=== PATIENT | female | born 1945 | race Caucasian/White ===

== ENCOUNTER 2022-05-09 08:50 | Observation (INO) | payer MEDICARE, MEDICAID, SELFPAY ==
[2022-05-09] VITALS (16 sets, daily range): BP systolic 81–152; BP diastolic 42–71; PULSE 65–92; RESP 12–20; TEMP 36.4–37; O2SAT 94–99; BMI 27.3; BMI 27.8
--- NOTE | ~2022-05-09 | XR_ITS ---
EXAMINATION: XR CHEST CLINICAL INFORMATION: Shortness of breath. COMPARISON: None available. TECHNIQUE: Frontal view of the chest was obtained. FINDINGS: No significant abnormality is noted involving the heart, lungs, mediastinum, bony thorax or soft tissues. XR/XR chest 1V IMPRESSION: No acute cardiopulmonary process.
--- NOTE | 2022-05-09 09:22 | ECG_ITS ---
Test Reason : DIZZINESS Blood Pressure : / mmHG Vent. Rate : 074 BPM Atrial Rate : 074 BPM P-R Int : 124 ms QRS Dur : 068 ms QT Int : 364 ms P-R-T Axes : 050 -36 082 degrees QTc Int : 404 ms Normal sinus rhythm Left axis deviation Low voltage QRS Abnormal ECG No previous ECGs available Referred By: Generic ED Physician Electronically Signed By:Denny Tatum
--- NOTE | 2022-05-09 09:23 | PC.NURSE ---
patient a&ox3, pt c/o increased dizziness recently, orthostats were performed and noted to be positive with patient experiencing increased dizziness in sitting and standing positions, nurse monitoring applied- nsr 70s-80 on monitor, pt hypotensive, pt awaiting provider will notify tech to draw labs and performe ekg, will continue to monitor.
[2022-05-09 09:53] LABS: MANUAL DIFF FLAG NO
[2022-05-09 09:56] LABS: Basophils Percent Auto 0.4 % (0-2); Eosinophils Absolute Auto 0.2 X10*3/uL (0.0-0.4); Eosinophils Percent Auto 1.5 % (0-4); Hematocrit 39.8 % (37.0-47.0); Hemoglobin 12.8 g/dl (12.0-16.0); Imm Gran Abs Auto 0.04 X10*3/uL (0.00-0.03); Imm Gran Pct Auto 0.4 % (0.0-0.4); Lymphocytes Absolute Auto 1.5 X10*3/uL (1.2-4.9); Lymphocytes Percent Auto 13.8 % (20-40); Mean Corpuscular HGB Conc 32.2 g/dl (31.0-35.0); Mean Corpuscular Hemoglobin 32.2 pg (27.0-33.0); Monocytes Absolute Auto 0.6 X10*3/uL (0.1-1.2); Monocytes Percent Auto 5.3 % (2-11); Neutrophils Absolute Auto 8.6 x10*3/uL (2.0-8.3); Neutrophils Percent Auto 78.6 % (45-73); Platelet Count 151 X10*3/uL (160-400); Red Blood Count 3.98 X10*6/uL (4.20-5.50); Red Cell Distribution Width 12.4 % (11.0-16.0)
--- NOTE | 2022-05-09 09:57 | ED.GENADULT ---
HPI - General Adult General Chief complaint: Dizziness Stated complaint: DIZZY,SOB,LOW BP 80/40 FROM [facility] Time Seen by Provider: 05/09/22 09:57 Source: patient and EMS Mode of arrival: EMS Limitations: no limitations History of Present Illness HPI narrative: Patient is a 76 year old assigned female at with a history of hypotension presenting to the emergency department today with dizziness and lightheadedness. Patient states that she can't get up without being dizzy and lightheaded. Patient denies any abdominal pain, nausea, vomiting, fever, chills, blurry vision, double vision, loss of vision, chest pain, difficulty breathing, shortness of breath, back pain, night sweats, pain with urination, increased urinary frequency, increased urinary urgency, blood in her urine or stool, syncope or a near syncopal episode, recent trauma or falls, bowel incontinence, bladder incontinence, bowel retention, bladder retention, or any other complaints at this time. Onset (ago): hour(s) Severity: mild Severity scale (1-10): 4 Relieving factors: none Exacerbating factors: none Treatments prior to arrival: none Related Data Home Medications Medication Instructions Recorded Confirmed acetaminophen 500 mg tablet 1,000 mg PO TID 05/09/22 05/09/22 albuterol sulfate 90 mcg/actuation 2 puff inhalation Q4-6H PRN 05/09/22 05/09/22 aerosol inhaler Wheezing albuterol sulfate 90 mcg/actuation 2 inh inhalation BID 05/09/22 05/09/22 breath activated powder inhaler (ProAir RespiClick) amitriptyline 25 mg tablet 25 mg PO BEDTIME 05/09/22 05/09/22 aspirin 81 mg chewable tablet 81 mg PO DAILY 05/09/22 05/09/22 buspirone 10 mg tablet 5 mg PO TID 05/09/22 05/09/22 carboxymethylcellulose sodium 0.5 1 - 2 drp ophthalmic (eye) Q2H PRN 05/09/22 05/09/22 % eye drops (Refresh Tears) Dry Eye(S) chlorhexidine gluconate 0.12 % 15 ml mucous membrane BID 05/09/22 05/09/22 mouthwash cholecalciferol (vitamin D3) 50 50 mcg PO DAILY 05/09/22 05/09/22 mcg (2,000 unit) tablet clonazepam 0.5 mg tablet 0.5 mg PO BID 05/09/22 05/09/22 cyanocobalamin (vitamin B-12) 2,000 mcg PO DAILY 05/09/22 05/09/22 1,000 mcg tablet duloxetine 30 mg capsule,delayed 30 mg PO DAILY 05/09/22 05/09/22 release duloxetine 60 mg capsule,delayed 60 mg PO DAILY 05/09/22 05/09/22 release fluticasone propionate 50 1 spray intranasal DAILY 05/09/22 05/09/22 mcg/actuation nasal spray,suspension levothyroxine 88 mcg tablet 88 mcg PO MOWEFR@0600 05/09/22 05/09/22 lidocaine 4 % topical patch 1 patch topical DAILY 05/09/22 05/09/22 (Aspercreme (lidocaine)) lidocaine HCl 2 % mucosal solution 1 appl mucous membrane TID 05/09/22 05/09/22 (Lidocaine Viscous) loratadine 10 mg tablet 10 mg PO DAILY 05/09/22 05/09/22 midodrine 2.5 mg tablet 2.5 mg PO BID@0900,1400 05/09/22 05/09/22 rosuvastatin 20 mg tablet 20 mg PO BEDTIME 05/09/22 05/09/22 sennosides 8.6 mg tablet 17.2 mg PO DAILY PRN Constipation 05/09/22 05/09/22 simethicone 80 mg chewable tablet 80 mg PO QID PRN bloating 05/09/22 05/09/22 trolamine salicylate 10 % topical 1 appl topical DAILY PRN Pain 05/09/22 05/09/22 cream Allergies Allergy/AdvReac Type Severity Reaction Status Date / Time No Known Allergies Allergy Verified 05/09/22 09:03 Review of Systems Constitutional: Constitutional: Reports no additional constitutional complaints, Denies chills, Denies fever(s) and Denies night sweats Eyes: Eyes: Reports no additional eye complaints, Denies blurry vision, Denies change in vision, Denies diplopia, Denies eye discharge, Denies loss of vision and Denies eye pain ENT: Reports dizziness Cardiovascular: Cardiovascular: Reports no additional cardiovascular complaints, Denies chest pain, Denies lightheadedness, Denies Loss of Consciousness and Denies dyspnea Respiratory: Respiratory: Reports no additional respiratory complaints and Denies dyspnea Gastrointestinal: Gastrointestinal: Reports no additional gastrointestinal complaints, Denies abdominal pain, Denies melena, Denies hematochezia, Denies change in bowel habits and Denies change in stool character Genitourinary: Genitourinary: Denies hematuria, Denies urinary frequency, Denies dysuria, Denies urinary incontinence, Denies urinary hesitancy and Denies urinary urgency Musculoskeletal: Musculoskeletal: Reports no additional musculoskeletal complaints, Denies numbness and Denies tingling Neurologic: Reports dizziness, Denies loss of vision, Denies numbness and Denies tingling Psychiatric: Psychiatric: Reports no additional psychiatric complaints Endocrine: Endocrine: Reports no additional endocrine complaints Hematologic/Lymphatic: Hematologic/Lymphatic: Reports no additional hematologic/lymphatic complaints Allergic/Immunologic: Allergic/Immunologic: Reports no additional allergic/immunologic complaints [facility] Past Medical History Attestation statement: The following information was validated with the patient. Source: old records reviewed and nursing notes reviewed Medical History Anxiety COPD (chronic obstructive pulmonary disease) Depression High cholesterol Hypotension Hypothyroid Social History Social History Alcohol intake: never Smoked in Last 30 Days: No Use of substances other than those prescribed or required for medical reasons: No Advance Directives: Yes Advance Directives Information Provided: No Physical Exam ED Vital Signs: Vital Signs - 24 hr 05/09/22 09:03 05/09/22 09:17 05/09/22 09:19 Temperature 97.5 F Pulse Rate 77 77 84 Respiratory Rate 18 Blood Pressure 97/56 L 106/58 L 81/50 L Pulse Oximetry 96 Oxygen Delivery Method Room Air 05/09/22 09:18 05/09/22 10:46 05/09/22 11:53 Temperature 98.1 F 98.1 F Pulse Rate 92 65 82 Respiratory Rate 14 18 Blood Pressure 84/42 L 123/65 97/52 L Pulse Oximetry 96 94 Oxygen Delivery Method Room Air Room Air 05/09/22 12:20 05/09/22 13:22 Temperature 98.1 F 98.0 F Pulse Rate 77 82 Respiratory Rate 14 18 Blood Pressure 121/64 102/60 Pulse Oximetry 98 99 Oxygen Delivery Method Room Air Room Air BMI result Body Mass Index 27.3 Const General: cooperative, no acute distress, alert and awake Nutritional Appearance: well nourished Orientation/consciousness: patient oriented x3 Limitations: no limitations HENMT Head: Yes normal to inspection and Yes atraumatic Ears: hearing grossly normal bilaterally and external ears normal General nose exam: Normal external nose present, no nasal discharge noted and no epistaxis Face and sinus: Yes normal facial exam, No abrasion and No laceration Mouth: Normal oral and palatal mucosa present, no drooling and no muffled voice Eyes General: appearance normal, both eyes and all related structures Periorbital: periorbital findings normal Eyelids: Yes eyelids normal Conjunctivae: conjunctivae normal Pupils: Equal, round and reactive pupils present EOM: EOMs intact bilaterally Neck Neck: Yes normal visual inspection, Yes full ROM and Yes no lymphadenopathy Chest Chest palpation & inspection: normal inspection of the chest Resp Effort & Inspection: normal respiratory effort and able to speak in complete sentences Auscultation: clear to auscultation bilaterally Cardio Rate: regular rate Rhythm: regular rhythm GI Inspection: Yes normal to inspection Palpation (GI): Soft to palpation, not firm, nontender and no guarding Neuro General: patient oriented x3 and moves all extremities Cranial nerves: Yes Equal, round and reactive pupils present Cognition (Neuro): normal cognition Motor exam (neuro): 5/5 motor strength present throughout Sensory Exam: Normal double simultaneous stimulation for sensation Coordination: [id number] test normal Extrem General: Yes normal to inspection, Yes full ROM and Yes capillary refill normal Psych Appearance: grossly normal Mental Status: mental status grossly normal Affect: normal affect Attitude: cooperative Thought process: Normal thought process present Thought content: Normal thought content present Insight: Good insight present (Psych) Medications Administered Discontinued Medications Generic Name Dose Route Start Last Admin Trade Name Freq PRN Reason Stop Dose Admin Sodium Chloride 500 mls @ 500 mls/hr 05/09/22 12:00 05/09/22 13:04 Ns IV 05/09/22 12:59 Infused .Q1H [facility] Infusion Midodrine 12.5 mg 05/09/22 10:01 05/09/22 10:18 Midodrine Hcl 10 Mg Tablet PO 05/09/22 10:02 12.5 mg ONCE ONE Administration Medical Decision Making Medical Decision Making MDM Narrative: Patient is a 76 year old assigned female at with a history of hypotension presenting to the emergency department today with dizziness/lightheadedness. Patient's physical exam showed positive orthostatic hypotension. Patient's blood work was unremarkable. Patient's EKG was unremarkable. Patient's chest x-ray showed no acute process. Patient was given IV fluids and midodrine however, the patient's orthostatic hypotension persisted. I spoke to the hospitalist team who agreed to admission. I explained my physical exam findings as well as all test results to the patient. I answered all questions asked by the patient. Patient verbalized agreement and understanding with this treatment plan and admission. Differential Diagnosis Differential Diagnoses: The differential diagnosis associated with the presentation includes orthostatic hypotension Consult Healthcare Provider Management of the patient was discussed with: Hospitalist (agreed to admission) Lab Data MDM Lab Attestation statement: I reviewed the patient's lab results. 05/09/22 09:49 05/09/22 09:49 Labs: Lab Results 05/09/22 05/09/22 05/09/22 Range/Units 09:49 09:49 09:49 WBC 11.0 H (4.8-10.8) X10*3/uL RBC 3.98 L (4.20-5.50) X10*6/uL Hgb 12.8 (12.0-16.0) g/dl Hct 39.8 (37.0-47.0) % MCV 100.0 H (80.0-98.0) fL MCH 32.2 (27.0-33.0) pg MCHC 32.2 (31.0-35.0) g/dl RDW 12.4 (11.0-16.0) % Plt Count 151 L (160-400) X10*3/uL MPV 9.0 L (9.4-12.3) fL Immature Gran % (Auto) 0.4 (0.0-0.4) % Neut % (Auto) 78.6 H (45-73) % Lymph % (Auto) 13.8 L (20-40) % Coos % (Auto) 5.3 (2-11) % Eos % (Auto) 1.5 (0-4) % Baso % (Auto) 0.4 (0-2) % Lymph # (Auto) 1.5 (1.2-4.9) X10*3/uL Coos # (Auto) 0.6 (0.1-1.2) X10*3/uL Eos # (Auto) 0.2 (0.0-0.4) X10*3/uL Baso # (Auto) 0.0 (0.0-0.2) X10*3/uL Abs Immat Gran (auto) 0.04 H (0.00-0.03) X10*3/uL Absolute Neuts (auto) 8.6 H (2.0-8.3) x10*3/uL Absolute Nucleated RBC 0.000 (0.0-0.012) X10*3/uL Nucleated RBC % (auto) 0.0 (0.0-0.2) /100WBC Sodium 136 (135-145) mmol/L Potassium 4.4 (3.3-5.1) mmol/L Chloride 107 (96-108) mmol/L Carbon Dioxide 18 L (22-29) mmol/L Anion Gap 15 (12-20) BUN 16 (9-16) mg/dL Creatinine 0.97 (0.5-1.4) mg/dL Estim Creat Clear Calc 44.5 Estimated GFR 56 Random Glucose 94 (60-115) mg/dL Calcium 9.8 (8.4-10.2) mg/dL Total Bilirubin 0.5 (0.0-1.0) mg/dL Direct Bilirubin < 0.2 (0.0-0.5) mg/dL AST 89 H (5-31) U/L ALT 158 H (0-31) U/L Alkaline Phosphatase 112 (39-117) U/L Troponin I High Sens < 2.7 (<3.5-17.0) ng/L Total Protein 6.0 L (6.5-8.0) g/dL Albumin 4.0 (3.5-5.0) g/dL COVID-19 ([facility]ISHA) (Negative) COVID-19 Clin Com 05/09/22 Range/Units 12:19 WBC (4.8-10.8) X10*3/uL RBC (4.20-5.50) X10*6/uL Hgb (12.0-16.0) g/dl Hct (37.0-47.0) % MCV (80.0-98.0) fL MCH (27.0-33.0) pg MCHC (31.0-35.0) g/dl RDW (11.0-16.0) % Plt Count (160-400) X10*3/uL MPV (9.4-12.3) fL Immature Gran % (Auto) (0.0-0.4) % Neut % (Auto) (45-73) % Lymph % (Auto) (20-40) % Coos % (Auto) (2-11) % Eos % (Auto) (0-4) % Baso % (Auto) (0-2) % Lymph # (Auto) (1.2-4.9) X10*3/uL Coos # (Auto) (0.1-1.2) X10*3/uL Eos # (Auto) (0.0-0.4) X10*3/uL Baso # (Auto) (0.0-0.2) X10*3/uL Abs Immat Gran (auto) (0.00-0.03) X10*3/uL Absolute Neuts (auto) (2.0-8.3) x10*3/uL Absolute Nucleated RBC (0.0-0.012) X10*3/uL Nucleated RBC % (auto) (0.0-0.2) /100WBC Sodium (135-145) mmol/L Potassium (3.3-5.1) mmol/L Chloride (96-108) mmol/L Carbon Dioxide (22-29) mmol/L Anion Gap (12-20) BUN (9-16) mg/dL Creatinine (0.5-1.4) mg/dL Estim Creat Clear Calc Estimated GFR Random Glucose (60-115) mg/dL Calcium (8.4-10.2) mg/dL Total Bilirubin (0.0-1.0) mg/dL Direct Bilirubin (0.0-0.5) mg/dL AST (5-31) U/L ALT (0-31) U/L Alkaline Phosphatase (39-117) U/L Troponin I High Sens (<3.5-17.0) ng/L Total Protein (6.5-8.0) g/dL Albumin (3.5-5.0) g/dL COVID-19 ([facility]ISHA) Negative (Negative) COVID-19 Clin Com See Note Independent Interpretation I performed an independent interpretation of an: EKG Interpretation: Vent. Rate: 074 BPM ? ? Atrial Rate : 074 BPM P-R Int: 124 ms? QRS Dur : 068 ms QT Int: 364 ms ? ? ? P-R-T Axes : 050 -36 082 degrees QTc Int: 404 ms ? Normal sinus rhythm Left axis deviation Low voltage QRS Abnormal ECG No previous ECGs available DD/ 0932 Radiology Impression Radiologist Impression: My interpretation is in agreement with the radiologist's impression of this imaging study. EXAMINATION: XR CHEST CLINICAL INFORMATION: Shortness of breath. COMPARISON: None available. TECHNIQUE: Frontal view of the chest was obtained. FINDINGS: No significant abnormality is noted involving the heart, lungs, mediastinum, bony thorax or soft tissues. XR/XR chest 1V IMPRESSION: No acute cardiopulmonary process. Dictated By: Leo Jack MD Signed By: Electronically signed by Leo Jack MD 05/09/22 1118 Independent Historian Clinical information obtained from an independent historian. History obtained from or confirmed by: EMS Critical Care Time Critical Care Time Critical Care Time: Yes Total Critical Care Time: 30 Attestation: I spent 30 minutes of Critical Care Time with this patient. This does not include time spent on separately reported billable procedures. Discharge Plan Discharge Clinical Impression: Orthostatic hypotension Patient Disposition: Admitted As Inpatient Print Language: Samoan
[2022-05-09 10:14] LABS: Anion Gap 15 (12-20); Blood Urea Nitrogen 16 mg/dL (9-16); Calcium 9.8 mg/dL (8.4-10.2); Carbon Dioxide 18 mmol/L (22-29); Chloride 107 mmol/L (96-108); Creatinine Clr Calc Pharmacy 44.5; Estimated Glomerular Filt Rate 56; Glucose Random 94 mg/dL (60-115); Potassium 4.4 mmol/L (3.3-5.1); Sodium 136 mmol/L (135-145)
[2022-05-09] MEDS: Midodrine HCl 10 MG TABLET 12.5 MG PO (10:18)
--- NOTE | 2022-05-09 10:20 | PC.NURSE ---
patient medicated with hypotension meds per order, will continue to monitor
[2022-05-09 10:28] LABS: Troponin-I High Sensitivity < 2.7 ng/L (<3.5-17.0)
--- NOTE | 2022-05-09 12:01 | PC.NURSE ---
patient a&ox3, quality assurance monitor chassis nsr, pt oob to standing position to take vitals and see if she could ambulate- upon standing pts bp dropped and pt began complaining of dizziness and feeling as if she was going to fall- pt was noted to be swaying while standing. pt put back in bed, provider, notified, will continue to monitor.
[2022-05-09] MEDS: 0.9 % Sodium Chloride 500 ML IV (12:04)
--- NOTE | 2022-05-09 12:05 | PC.NURSE ---
pt medicated with ivf per order
--- NOTE | 2022-05-09 12:18 | PHA.MEDREC ---
Pharmacy Consult ? Medication Reconciliation Pharmacy has completed the medication reconciliation. Patient came from [facility] with medication list. Prescription medication match claim history. Gisella Hoffmann, NamanD
[2022-05-09 12:58] LABS: COVID-19 Test Negative (Negative); IDNOW Serial# 55D5AD1C
[2022-05-09 13:00] LABS: Alanine Aminotransferase 158 U/L (0-31); Alkaline Phosphatase 112 U/L (39-117); Aspartate Amino Transferase 89 U/L (5-31); Bilirubin Direct < 0.2 mg/dL (0.0-0.5); Bilirubin Total 0.5 mg/dL (0.0-1.0)
--- NOTE | 2022-05-09 13:22 | PC.NURSE ---
Addendum entered by Jasmin Toledo RN 05/09/22 13:33: upon patient laying back in bed pt stated she felt dizzy again. Original Note: patient a&ox2, pt rang for assist to bathroom, vitals obtained prior to ambulation- pts standing bp has increased over 100 systolic, pt denied dizziness at the time of BP, this nurse ambulated the patient to bathroom- she continued to deny dizziness however she is very unsteady on her feet- pt states she usually ambulates with a walker, lives in assisted living and calls for assistance to ambulate to the bathroom. pt also states she has had decreased po intake recently- this nurse has encouraged the patient to increase her po to help prevent dizziness and continue to take her medication to prevent hypotention which also would contribute to her dizziness. pt understood our conversation and stated she did need to drink more. pt reconnected to monitor, call noonan within reach, will notify provider and continue to monitor
[2022-05-09 14:11] LABS: Appearance Urine Clear; Color Urine Yellow; Glucose Urine UA Negative (Negative); Leukocyte Esterase Urine Small (1+) (Negative); Nitrite Urine Negative (Negative); Specific Gravity - Urine 1.015 (1.005-1.025); UMIC TRIGGER UACC YES; Urine Blood Negative (Negative); Urine Ketones Negative (Negative); Urine Protein Negative (Neg-Trace)
[2022-05-09 14:38] LABS: Bacteria Urine None Seen (None Seen); RBC Urine 0-2 /HPF (0-2); Squamous Epithelial Cell Urine 0-2 /HPF (0-2); UACC Culture Trigger YES; WBC Urine 0-5 /HPF (0-5)
--- NOTE | 2022-05-09 15:48 | PC.NURSE ---
this nurse spoke to Denton YOUNG CM from [facility] concerning this pt. Denton will be following up tomorrow after pt admission.
--- NOTE | 2022-05-09 15:49 | PC.NURSE ---
[facility] 28/08 phone number [phone]
--- NOTE | 2022-05-09 16:19 | PM.IMHP ---
History of Present Illness Date of Service: 05/09/22 <Yue Brown NP - Last Filed: 05/09/22 16:41> Chief Complaint: dizziness <Yue Brown NP - Last Filed: 05/09/22 16:41> 76-year-old woman presenting from [facility] with dizziness. She reports that she woke up this morning and the clinical social work aide was helping her get out of bed she reported that she felt rushed and she got out of bed fast and began to feel dizzy. She denied any loss of consciousness, fall, nausea, vomiting, diarrhea, chest pain, shortness breath, visual changes, headache. She does have a history of orthostasis and is on midodrine. She also did report that she may not have been eating and drinking as much as she usually does over the last couple of days. In the ER, she was noted to be orthostatic, she was given 500 mL of IV fluids with stabilization of blood pressure. No sign of infection noted, UA and chest x-ray both negative, no fever. COVID negative. She will be placed on observation for further management and treatment of orthostatic hypotension. <Yue Brown NP - Last Filed: 05/09/22 16:41> Review of Systems Review of Systems: Denies any recent fever chills or decrease in appetite respiratory denies any shortness of breath coverage production cardiovascular denied chest pain gastrointestinal denies any dysphagia abdominal pain nausea vomiting or diarrhea genitourinary denies any dysuria frequency or hematuria musculoskeletal denies any joint pain or swelling neuropsych denies any weakness or seizures all other systems reviewed are negative <Yue Brown NP - Last Filed: 05/09/22 16:41> [facility] Medical History: Medical History Anxiety COPD (chronic obstructive pulmonary disease) Depression High cholesterol Hypotension Hypothyroid <Yue Brown NP - Last Filed: 05/09/22 16:41> Pertinent family history: No cardiac disease <Yue Brown NP - Last Filed: 05/09/22 16:41> Surgical History: Surgical History (Updated 05/09/22 @ 16:20 by Yue Brown NP) Surgical history unknown <Yue Brown NP - Last Filed: 05/09/22 16:41> Social History: Social History Alcohol intake: never Patient Tobacco Use Status: Never used Tobacco Smoked in Last 30 Days: No Use of substances other than those prescribed or required for medical reasons: No Advance Directives: Yes Advance Directives Information Provided: No <Yue Brown NP - Last Filed: 05/09/22 16:41> Meds Allergies/Adverse reactions: Allergies Allergy/AdvReac Type Severity Reaction Status Date / Time No Known Allergies Allergy Verified 05/09/22 09:03 <Yue Brown NP - Last Filed: 05/09/22 16:41> Active Medications: Current Medications Acetaminophen (Acetaminophen 325 Mg Tablet) 650 mg PO Q6H PRN PRN Reason: Pain, Mild (Pain Scale 1-3) Heparin Sodium (Porcine) (Heparin Sodium,Porcine 5,000 Unit/Ml Vial) 5,000 unit SUBCUT Q12H [facility] Sodium Chloride (Ns) 1,000 mls @ 80 mls/hr IVCONT .[id number] [facility] Stop: 05/10/22 04:59 Ondansetron HCl (Ondansetron Hcl 4 Mg/2 Ml Vial) 4 mg IVPUSH Q8H PRN PRN Reason: Nausea and Vomiting Pharmacy Consult (Consult Rx Perform Med Rec) 1 each MISCELLANE ONCE PRN PRN Reason: Consult order Sodium Chloride (0.9 % Sodium Chloride Flush 3 Ml Syringe) 3 ml IVFLUSH QSHIFT [facility]ANGELIST <Yue Brown NP - Last Filed: 05/09/22 16:41> Home medications: Home Medications Medication Instructions Recorded Confirmed Last Taken Type acetaminophen 500 mg tablet 1,000 mg PO TID 05/09/22 05/09/22 Unknown History albuterol sulfate 90 mcg/actuation 2 puff inhalation Q4-6H PRN 05/09/22 05/09/22 Unknown History aerosol inhaler Wheezing albuterol sulfate 90 mcg/actuation 2 inh inhalation BID 05/09/22 05/09/22 Unknown History breath activated powder inhaler (ProAir RespiClick) amitriptyline 25 mg tablet 25 mg PO BEDTIME 05/09/22 05/09/22 Unknown History aspirin 81 mg chewable tablet 81 mg PO DAILY 05/09/22 05/09/22 Unknown History buspirone 10 mg tablet 5 mg PO TID 05/09/22 05/09/22 Unknown History carboxymethylcellulose sodium 0.5 1 - 2 drp ophthalmic (eye) Q2H PRN 05/09/22 05/09/22 Unknown History % eye drops (Refresh Tears) Dry Eye(S) chlorhexidine gluconate 0.12 % 15 ml mucous membrane BID 05/09/22 05/09/22 Unknown History mouthwash cholecalciferol (vitamin D3) 50 50 mcg PO DAILY 05/09/22 05/09/22 Unknown History mcg (2,000 unit) tablet clonazepam 0.5 mg tablet 0.5 mg PO BID 05/09/22 05/09/22 Unknown History cyanocobalamin (vitamin B-12) 2,000 mcg PO DAILY 05/09/22 05/09/22 Unknown History 1,000 mcg tablet duloxetine 30 mg capsule,delayed 30 mg PO DAILY 05/09/22 05/09/22 Unknown History release duloxetine 60 mg capsule,delayed 60 mg PO DAILY 05/09/22 05/09/22 Unknown History release fluticasone propionate 50 1 spray intranasal DAILY 05/09/22 05/09/22 Unknown History mcg/actuation nasal spray,suspension levothyroxine 88 mcg tablet 88 mcg PO MOWEFR@0600 05/09/22 05/09/22 Unknown History lidocaine 4 % topical patch 1 patch topical DAILY 05/09/22 05/09/22 Unknown History (Aspercreme (lidocaine)) lidocaine HCl 2 % mucosal solution 1 appl mucous membrane TID 05/09/22 05/09/22 Unknown History (Lidocaine Viscous) loratadine 10 mg tablet 10 mg PO DAILY 05/09/22 05/09/22 Unknown History midodrine 2.5 mg tablet 2.5 mg PO BID@0900,1400 05/09/22 05/09/22 Unknown History rosuvastatin 20 mg tablet 20 mg PO BEDTIME 05/09/22 05/09/22 Unknown History sennosides 8.6 mg tablet 17.2 mg PO DAILY PRN Constipation 05/09/22 05/09/22 Unknown History simethicone 80 mg chewable tablet 80 mg PO QID PRN bloating 05/09/22 05/09/22 Unknown History trolamine salicylate 10 % topical 1 appl topical DAILY PRN Pain 05/09/22 05/09/22 Unknown History cream <Yue Brown NP - Last Filed: 05/09/22 16:41> Physical Exam Vital Signs and Narrative: Vital Signs: Last Vital Signs Temp 98.6 F 05/09/22 15:19 Pulse 72 05/09/22 15:19 Resp 14 05/09/22 15:19 BP 133/71 05/09/22 15:19 Pulse Ox 96 05/09/22 15:19 O2 Del Method Room Air 05/09/22 15:19 BMI result Body Mass Index 27.3 <Yue Brown NP - Last Filed: 05/09/22 16:41> Appearing in no acute distress head is normocephalic atraumatic eyes pupils are PERRLA sclera is anicteric mouth throat mucous membranes are intact and moist neck is supple no lymphadenopathy, no JVD noted lung sounds are clear to auscultation heart regular rate rhythm, clear S1, S2 positive bowel sounds, abdomen is soft, nontender neuro patient is alert x3, no focal deficits <Yue Brown NP - Last Filed: 05/09/22 16:41> Results Labs CBC and Chem 7: 05/09/22 09:49 05/09/22 09:49 <Yue Brown NP - Last Filed: 05/09/22 16:41> Labs: Laboratory Results - last 24 hr 05/09/22 05/09/22 05/09/22 09:49 09:49 09:49 MCV 100.0 H MCH 32.2 MCHC 32.2 RDW 12.4 Plt Count 151 L MPV 9.0 L Immature Gran % (Auto) 0.4 Neut % (Auto) 78.6 H Lymph % (Auto) 13.8 L Pepin % (Auto) 5.3 Eos % (Auto) 1.5 Baso % (Auto) 0.4 Lymph # (Auto) 1.5 Pepin # (Auto) 0.6 Eos # (Auto) 0.2 Baso # (Auto) 0.0 Abs Immat Gran (auto) 0.04 H Absolute Neuts (auto) 8.6 H Absolute Nucleated RBC 0.000 Nucleated RBC % (auto) 0.0 Anion Gap 15 Estim Creat Clear Calc 44.5 Estimated GFR 56 Random Glucose 94 Calcium 9.8 Total Bilirubin 0.5 Direct Bilirubin < 0.2 AST 89 H ALT 158 H Alkaline Phosphatase 112 Troponin I High Sens < 2.7 Total Protein 6.0 L Albumin 4.0 Urine Color Urine Appearance Urine pH Ur Specific [place] Urine Protein Urine Glucose (UA) Urine Ketones Urine Blood Urine Nitrite Ur Leukocyte Esterase Urine RBC Urine WBC Ur Squamous Epith Cells Urine Bacteria Hyaline Casts COVID-19 ([facility]IS[facility]) COVID-19 Clin Com 05/09/22 05/09/22 12:19 13:48 MCV MCH MCHC RDW Plt Count MPV Immature Gran % (Auto) Neut % (Auto) Lymph % (Auto) [place] % (Auto) Eos % (Auto) Baso % (Auto) Lymph # (Auto) [place] # (Auto) Eos # (Auto) Baso # (Auto) Abs Immat Gran (auto) Absolute Neuts (auto) Absolute Nucleated RBC Nucleated RBC % (auto) Anion Gap Estim Creat Clear Calc Estimated GFR Random Glucose Calcium Total Bilirubin Direct Bilirubin AST ALT Alkaline Phosphatase Troponin I High Sens Total Protein Albumin Urine Color Yellow Urine Appearance Clear Urine pH 6.0 Ur Specific [place] 1.015 Urine Protein Negative Urine Glucose (UA) Negative Urine Ketones Negative Urine Blood Negative Urine Nitrite Negative Ur Leukocyte Esterase Small (1+) H Urine RBC 0-2 Urine WBC 0-5 Ur Squamous Epith Cells 0-2 Urine Bacteria None Seen Hyaline Casts 3-5 COVID-19 (ALEISHA) Negative COVID-19 Clin Com See Note <Yue Brown NP - Last Filed: 05/09/22 16:41> Imaging Radiologist's Impressions: Impressions Chest X-Ray 05/09/22 10:33 IMPRESSION: No acute cardiopulmonary process. <Yue Brown NP - Last Filed: 05/09/22 16:41> Assessment and Plan (1) Orthostatic hypotension: Status: Acute <Yue Brown NP - Last Filed: 05/09/22 16:41> 76 year old women placed on observation from assisted living facility with orthostatic hypotension Orthostatic hypotension with symptomatic dizziness Likely from dehydration Low BP on admission Continue normal saline x1 L Check orthostatic blood pressures Q shift Continue midodrine Physical therapy evaluation Hypothyroidism continue home medications Mental health continue home medications HLD asa, statin asthma, no exacerbation albuterol as needed DVT prophylaxis with heparin Full code Disposition back to assisted living facility when medically clear <Yue Brown NP - Last Filed: 05/09/22 16:41> 76 year old women placed on observation from assisted living facility with orthostatic hypotension Orthostatic hypotension with symptomatic dizziness Likely from dehydration Low BP on admission Continue normal saline x1 L Check orthostatic blood pressures Q shift Continue midodrine Physical therapy evaluation Hypothyroidism continue home medications Mental health continue home medications HLD asa, statin asthma, no exacerbation albuterol as needed DVT prophylaxis with heparin Full code Disposition back to assisted living facility when medically clear a <[place] MD - Last Filed: 05/09/22 19:50> Time Spent With Patient Time: Total time managing care of this patient today ____ minutes. <Yue Brown NP - Last Filed: 05/09/22 16:41> Quality Stroke Does the patient have a stroke diagnosis?: No <Yue Brown NP - Last Filed: 05/09/22 16:41> VTE Prior VTE?: No <Yue Brown NP - Last Filed: 05/09/22 16:41> VTE Risk Level:: Medical - moderate - high <Yue Brown NP - Last Filed: 05/09/22 16:41> VTE Device Contraindication: Treatment Not Indicated <Yue Brown NP - Last Filed: 05/09/22 16:41> VTE Drug Contraindication: N/A - Med Ordered <Yue Brown NP - Last Filed: 05/09/22 16:41>
--- NOTE | 2022-05-09 16:54 | PC.NURSE ---
patient continues to be alert & oriented x3, monitor car operator nsr, vitals are stable- will reassess orthostatics as she has become hypotensive and dizzy with sitting/standing. pt requesting food- will call kitchen and obtain a tray, call noonan within reach, will continue to monitor.
[2022-05-09] MEDS: 0.9 % Sodium Chloride 1,000 ML 80 ML IVCONT (17:12)
--- NOTE | 2022-05-09 17:12 | PC.NURSE ---
patients orthostats continue to be positive, ivf are being initiated
[2022-05-09] MEDS: Heparin Sodium,Porcine 5,000 UNIT/ML VIAL 5000 UNIT SUBCUT (17:18)
--- NOTE | 2022-05-09 18:34 | PC.NURSE ---
report called to floor
[2022-05-09] MEDS: busPIRone HCl 5 MG TABLET PO (20:52)
[2022-05-09] MEDS: clonazePAM 0.5 MG TABLET PO (20:52)
[2022-05-09] MEDS: Amitriptyline HCl 25 MG TABLET PO (20:52)
[2022-05-09] MEDS: 0.9 % Sodium Chloride Flush 3 ML SYRINGE IVFLUSH (23:39)
[2022-05-10 04:00] VITALS: BP 121/63; PULSE 73; RESP 20; TEMP 36.3; O2SAT 93
[2022-05-10] MEDS: Heparin Sodium,Porcine 5,000 UNIT/ML VIAL 5000 UNIT SUBCUT (05:20)
[2022-05-10] MEDS: Levothyroxine Sodium 88 MCG TABLET PO (05:20)
[2022-05-10 07:06] VITALS: BP 122/75; PULSE 65; RESP 16; TEMP 36.7; O2SAT 97
[2022-05-10 07:15] LABS: MANUAL DIFF FLAG NO
[2022-05-10 07:26] LABS: Basophils Percent Auto 0.3 % (0-2); Eosinophils Absolute Auto 0.2 X10*3/uL (0.0-0.4); Eosinophils Percent Auto 3.6 % (0-4); Hematocrit 33.4 % (37.0-47.0); Hemoglobin 10.8 g/dl (12.0-16.0); Imm Gran Abs Auto 0.01 X10*3/uL (0.00-0.03); Imm Gran Pct Auto 0.2 % (0.0-0.4); Lymphocytes Absolute Auto 2.4 X10*3/uL (1.2-4.9); Lymphocytes Percent Auto 37.7 % (20-40); Mean Corpuscular HGB Conc 32.3 g/dl (31.0-35.0); Mean Corpuscular Hemoglobin 31.7 pg (27.0-33.0); Mean Corpuscular Volume 97.9 fL (80.0-98.0); Mean Platelet Volume 8.9 fL (9.4-12.3); Monocytes Absolute Auto 0.5 X10*3/uL (0.1-1.2); Monocytes Percent Auto 7.4 % (2-11); Neutrophils Absolute Auto 3.2 x10*3/uL (2.0-8.3); Neutrophils Percent Auto 50.8 % (45-73); Platelet Count 142 X10*3/uL (160-400); Red Blood Count 3.41 X10*6/uL (4.20-5.50); Red Cell Distribution Width 12.6 % (11.0-16.0); White Blood Count 6.3 X10*3/uL (4.8-10.8)
[2022-05-10 07:38] LABS: Alanine Aminotransferase 126 U/L (0-31); Albumin Level 3.5 g/dL (3.5-5.0); Alkaline Phosphatase 90 U/L (39-117); Anion Gap 12 (12-20); Aspartate Amino Transferase 61 U/L (5-31); Bilirubin Direct < 0.2 mg/dL (0.0-0.5); Bilirubin Total 0.5 mg/dL (0.0-1.0); Blood Urea Nitrogen 12 mg/dL (9-16); Calcium 9.4 mg/dL (8.4-10.2); Carbon Dioxide 26 mmol/L (22-29); Chloride 107 mmol/L (96-108); Creatinine Clr Calc Pharmacy 57.4; Estimated Glomerular Filt Rate > 60; Glucose Random 94 mg/dL (60-115); Potassium 4.3 mmol/L (3.3-5.1); Sodium 141 mmol/L (135-145); Total Protein 5.3 g/dL (6.5-8.0)
[2022-05-10 07:46] VITALS: BP 141/65; PULSE 66
[2022-05-10 07:47] VITALS: BP 135/72; PULSE 73
[2022-05-10 07:48] VITALS: BP 122/64; PULSE 81
[2022-05-10] MEDS: Cyanocobalamin (Vitamin B-12) 1,000 MCG TABLET 2000 MCG PO (08:04)
[2022-05-10] MEDS: clonazePAM 0.5 MG TABLET PO (08:04)
[2022-05-10] MEDS: Cholecalciferol (Vitamin D3) 25 MCG TABLET 50 MCG PO (08:04)
[2022-05-10] MEDS: Midodrine HCl 2.5 MG TABLET PO (08:04)
[2022-05-10] MEDS: busPIRone HCl 5 MG TABLET PO (08:04)
[2022-05-10] MEDS: Loratadine 10 MG TABLET PO (08:04)
[2022-05-10] MEDS: DULoxetine HCl 60 MG CAPSULE.DR PO (08:04)
[2022-05-10] MEDS: Aspirin 81 MG TAB.CHEW PO (08:04)
[2022-05-10] MEDS: DULoxetine HCl 30 MG CAPSULE.DR PO (08:05)
[2022-05-10] MEDS: 0.9 % Sodium Chloride Flush 3 ML SYRINGE IVFLUSH (08:09)
--- NOTE | 2022-05-10 09:19 | MHC.CM.PN ---
Addendum entered by Barbara Barreto RN 05/10/22 09:34: CM CONTACTED [facility] TO OBTAIN COPY OF HCP, [facility] CONFIRMS CYNDIE PAEZ [phone] [facility] AND WILL FAX TO CM OFFICE. Original Note: YEPEZ 05/10/22 DELIVERED TO BEDSIDE AND PLACED IN CHART, EMR REVIEWED, PT ADMITTED W/ORTHOSTATIC HYPOTENSION, CM MET W/PT WHO VERIFIES SHE LIVES AT [facility], PT REPORTS SHE USES A CANE/INHALER ONLY DME, PT UNSURE IF THERE ARE GRAB BARS IN BR, [employer] PROVIDES CLEANING/3 MEALS/DAY AND PT UNSURE OF HOW FREQUENTLY SHE HAS ASSISTANCE W/SHOWERING AND REPORTS SHE DOES GET UP AND DRESSED IN AM W/OUT DAILY ASSISTANCE HOWEVER [employer]CHO[employer] BAND TEACHER WAS WITH PT WHEN SHE CAME IN TO ED AND WAS GETTING HER OUT OF BED, PT HAS POOR MEMORY/HISTORIAN. PT REPORTS SHE WOULD LIKE TO D/C BACK TO [facility] AND IS OPEN TO [facility] FOR SERVICES. P.T. RECOMMENDING HOME W/SERVICES AND REFERRAL TO [facility] TO BE PLACED. PT VERIFIES PCP IS JOAN HAYS X1 ([facility]), LOWELL ON FILE FROM PREVIOUS ADMIT AND PT BELIEVES SHE HAS A HCP, CM TO FOLLOW UP W/[facility]SC[facility]. D/C PLAN: RETURN TO [facility] W/NEW [facility] FOR HOME PT, CM TO SET UP TRANSPORT.
--- NOTE | 2022-05-10 10:34 | W.MHC.F2F ---
Service Date Service Date: 05/10/22 Encounter Date of encounter: 05/10/22 Encounter: Orthostatic hypotension Reasons for Services Signs and symptoms assessed: Dizziness or lightheadedness. Reason for long-term: medication management, medication treatment and teach disease management Reason for physical therapy: home safety and mobility, therapeutic exercises, restore joint function, gait/transfer training, assess need for DME, ADL training, energy conservation and other MD Overseeing Care: Heidy Finney Homebound: Leaving the home is medically contraindicated at this time without the asist of a device and/or another person due th the listed conditions above and below. Reason homebound: weakness related to hospital stay Homebound supporting statement: Patient is generalized weak and multiple comorbidities including orthostatic hypotension-need PT and also help with appointments Certification: Based on the above findings, I certify that this patient is confined to the home and needs intermittent long-term care, physical therapy and/or speech therapy, or continues to need occupational therapy. The patient is under my care, and I have initiated the establishment of the plan of care. The patient will be followed by a physician who will periodically review the plan of care. Time Spent With Patient Time: Total time managing care of this patient today ____ minutes.
--- NOTE | 2022-05-10 10:36 | P.DS_ITS ---
DS: Providers Provider Date of Service: 05/10/22 Date of admission: 05/09/22 16:14 Date of discharge: 05/10/22 Primary care physician: Heidy Finney MD DS: Diagnosis Discharge Diagnosis (1) Orthostatic hypotension: Status: Acute DS: Summary Hospital Course Hospital Course: 76-year-old woman presenting from [facility] with dizziness.? She reports that she woke up this morning and the professional nursing tutor was helping her get out of bed she reported that she felt rushed and she got out of bed fast and began to feel dizzy.? She denied any loss of consciousness, fall, nausea, vomiting, diarrhea, chest pain, shortness breath, visual changes, headache.? She does have a history of orthostasis and is on midodrine.? She also did report that she may not have been eating and drinking as much as she usually does over the last couple of days.? In the ER, she was noted to be orthostatic, she was given 500 mL of IV fluids with stabilization of blood pressure.? No sign of infection noted, UA and chest x-ray both negative, no fever.? COVID negative.? She will be placed on observation for further management and treatment of orthostatic hypotension. Hospital course: Patient was admitted because of symptomatic orthostatic hypotension possibly related to dehydration and decreased p.o. intake. Patient was given hydration IV and her p.o. intake is also improving. She is asymptomatic this morning and orthostasis is also seems improved. Patient was strongly advised for p.o. hydration, continue midodrine, also Meek stocking added. In addition if she has symptoms again may need to adjust midodrine outpatient. Follow-up with PCP. plan: Continue midodrine and Meek stockings. Patient was advised to walk slowly and take time when goes from sitting to standing position. Follow-up with PCP outpatient. Above management discussed with the patient in detail length she understand and in agreement with the above plan, time spent 50 minutes and 50% time spent on counseling. Time Spent with Patient Time attestation: Total time managing care of this patient today ____ minutes. Discharge coordination time: Greater than 30 minutes Quality: Safe Use of Opioids Does Pt have an Active Cancer Diagnosis on the Problem List?: No Quality: Stroke Does the patient have a stroke diagnosis?: No Physical Exam Vital Signs: Vital Signs: Last Vital Signs Temp 98.1 F 05/10/22 07:06 Pulse 81 05/10/22 07:48 Resp 16 05/10/22 07:06 BP 122/64 05/10/22 07:48 Pulse Ox 97 05/10/22 07:06 O2 Del Method Room Air 05/10/22 07:06 BMI result Body Mass Index 27.8 Appearance: Alert.? Oriented X3.? not in distress.? Eyes: Pupils equal, round and reactive to light.? Sclera nonicteric.? ENT: Pharynx normal.? Moist mucous membranes. cvs: rrr, [id number] . res: clear to auscultation ,no rhonchii or wheezing abd: no rebound or guarding ,nt, bs present. ext pulses present , no cyanosis . neuro: axo3 , nonfocal. DS: Data Data Completed and Pending Labs on day of discharge: Laboratory Results - last 24 hr 05/09/22 05/09/22 05/09/22 09:49 12:19 13:48 WBC RBC Hgb Hct MCV MCH MCHC RDW Plt Count MPV Immature Gran % (Auto) Neut % (Auto) Lymph % (Auto) [place] % (Auto) Eos % (Auto) Baso % (Auto) Lymph # (Auto) [place] # (Auto) Eos # (Auto) Baso # (Auto) Abs Immat Gran (auto) Absolute Neuts (auto) Absolute Nucleated RBC Nucleated RBC % (auto) Sodium Potassium Chloride Carbon Dioxide Anion Gap BUN Creatinine Estim Creat Clear Calc Estimated GFR Random Glucose Calcium Total Bilirubin 0.5 Direct Bilirubin < 0.2 AST 89 H ALT 158 H Alkaline Phosphatase 112 Total Protein 6.0 L Albumin 4.0 Urine Color Yellow Urine Appearance Clear Urine pH 6.0 Ur Specific [place] 1.015 Urine Protein Negative Urine Glucose (UA) Negative Urine Ketones Negative Urine Blood Negative Urine Nitrite Negative Ur Leukocyte Esterase Small (1+) H Urine RBC 0-2 Urine WBC 0-5 Ur Squamous Epith Cells 0-2 Urine Bacteria None Seen Hyaline Casts 3-5 COVID-19 ([facility]ISHA) Negative COVID-19 Clin Com See Note 05/10/22 05/10/22 06:59 06:59 WBC 6.3 RBC 3.41 L Hgb 10.8 L Hct 33.4 L MCV 97.9 MCH 31.7 MCHC 32.3 RDW 12.6 Plt Count 142 L MPV 8.9 L Immature Gran % (Auto) 0.2 Neut % (Auto) 50.8 Lymph % (Auto) 37.7 [place] % (Auto) 7.4 Eos % (Auto) 3.6 Baso % (Auto) 0.3 Lymph # (Auto) 2.4 [place] # (Auto) 0.5 Eos # (Auto) 0.2 Baso # (Auto) 0.0 Abs Immat Gran (auto) 0.01 Absolute Neuts (auto) 3.2 Absolute Nucleated RBC 0.000 Nucleated RBC % (auto) 0.0 Sodium 141 Potassium 4.3 Chloride 107 Carbon Dioxide 26 Anion Gap 12 BUN 12 Creatinine 0.76 Estim Creat Clear Calc 57.4 Estimated GFR > 60 Random Glucose 94 Calcium 9.4 Total Bilirubin 0.5 Direct Bilirubin < 0.2 AST 61 H ALT 126 H Alkaline Phosphatase 90 Total Protein 5.3 L Albumin 3.5 Urine Color Urine Appearance Urine pH Ur Specific [place] Urine Protein Urine Glucose (UA) Urine Ketones Urine Blood Urine Nitrite Ur Leukocyte Esterase Urine RBC Urine WBC Ur Squamous Epith Cells Urine Bacteria Hyaline Casts COVID-19 (ALEISHA) COVID-19 Clin Com Imaging Chest x-ray: Radiologist's impression: ITS Impressions Chest X-Ray 05/09/22 10:33 IMPRESSION: No acute cardiopulmonary process. Discharge Plan Discharge Patient Disposition: Home Health Service Discharge Diagnosis: Orthostatic hypotension. Referrals: Heidy Finney MD [Primary Care Provider] - 1 Week Discharge Medications: New (DME) Alec.ERegis Knee Ipfzmo-D-Zbei Misc See Rx Instructions .ROUTE .MEDSUPPLY Qty: 12 0RF Rx Instructions: As directed Continued sennosides 8.6 mg Tablet 17.2 mg PO DAILY PRN (Reason: Constipation) lidocaine [Aspercreme (lidocaine)] 4 % Adhesive Patch,Medicated 1 patch TOPICAL DAILY clonazepam 0.5 mg tablet 0.5 mg PO BID cyanocobalamin (vitamin B-12) 1,000 mcg Tablet 2,000 mcg PO DAILY acetaminophen 500 mg Tablet 1,000 mg PO TID levothyroxine 88 mcg tablet 88 mcg PO MOWEFR@0600 amitriptyline 25 mg tablet 25 mg PO BEDTIME carboxymethylcellulose sodium [Refresh Tears] 0.5 % drops 1 - 2 drp ophthalmic (eye) Q2H PRN (Reason: Dry Eye(S)) buspirone 10 mg tablet 5 mg PO TID lidocaine HCl [Lidocaine Viscous] 2 % Solution 1 appl MUCOUS MEMBRANE TID aspirin 81 mg Tablet,Chewable 81 mg PO DAILY midodrine 2.5 mg Tablet 2.5 mg PO BID@0900,1400 Rx Instructions: do not give last dose of day after 6PM or within 4 hrs of bedtime albuterol sulfate 90 mcg/actuation Hfa Aerosol Inhaler 2 puff INHALATION Q4-6H PRN (Reason: Wheezing) fluticasone propionate 50 mcg/actuation spray,suspension 1 spray intranasal DAILY loratadine 10 mg tablet 10 mg PO DAILY trolamine salicylate 10 % Cream 1 appl TOPICAL DAILY PRN (Reason: Pain) simethicone 80 mg Tablet,Chewable 80 mg PO QID PRN (Reason: bloating) rosuvastatin 20 mg tablet 20 mg PO BEDTIME duloxetine 30 mg capsule,delayed release(DR/EC) 30 mg PO DAILY duloxetine 60 mg capsule,delayed release(DR/EC) 60 mg PO DAILY chlorhexidine gluconate 0.12 % Mouthwash 15 ml mucous membrane BID cholecalciferol (vitamin D3) 50 mcg (2,000 unit) Tablet 50 mcg PO DAILY ProAir RespiClick 90 mcg/actuation Aerosol Powdr Breath Activated 2 inh INHALATION BID Discharge Orders: Discharge Order (Routine); Ordered 05/10/22 Ordered By: [place] Diet: Advance to usual diet Activity on Discharge: As tolerated Stand Alone Forms: Patient Portal Discharge page Print Language: Albanian Care Plan Goals: Patient was admitted because of symptomatic orthostatic hypotension possibly related to dehydration and decreased p.o. intake. Patient was given hydration IV and her p.o. intake is also improving. She is asymptomatic this morning and orthostasis is also seems improved. Patient was strongly advised for p.o. hydration, continue midodrine, also Meek stocking added. In addition if she has symptoms again may need to adjust midodrine outpatient. Follow-up with PCP. Health Concerns: As above. Plan of Treatment: As above. Assessment: As above. Patient Instructions: Hypotension (ED)
[2022-05-10 10:59] VITALS: BP 114/67; PULSE 79; RESP 16; TEMP 36.9; O2SAT 97
--- NOTE | 2022-05-10 11:00 | MHC.CM.PN ---
Patient has been medically cleared for dc to home ([facility]) today with home PT.RICCO spoke with Saleem @ [phone] and informed them of today's dc. RICCO spoke with Denton from [facility] at [phone] who has indicated that [facility] will provide home PT.DC summary will be faxed to Denton at [phone].Patient will dc to home today at 2PM, via [facility].
== END 2022-05-10 14:45 | disposition home health service (06) ==
LOC: HO.ED 13:48 → HO.EDOVER 16:27 → HO.IMC 16:33
PROVIDERS: Physician Assistant Medical; Admitting Provider Nurse Practitioner Acute Care; Emergency Provider Emergency Medicine Emergency Medical Services; PCP Surgery; Visit Provider Internal Medicine
DX: I95.1 Orthostatic hypotension (principal); R06.02 Shortness of breath; E78.00 Pure hypercholesterolemia, unspecified; E03.9 Hypothyroidism, unspecified; Z79.82 Long term (current) use of aspirin; Z79.899 Other long term (current) drug therapy; Z79.02 Long term (current) use of antithrombotics/antiplatelets; Z20.822 Contact with and (suspected) exposure to COVID-19
CPT/HCPCS: 36415; 71045; 80048; 80076; 81001; 84484; 85025; 87086; 87635; 93005; 96360; 96361; 96372; 97162; 99222; 99285; J1643